=== PATIENT | female | born 1990 | race Caucasian/White ===

== ENCOUNTER 2016-09-25 10:58 | Emergency (ER) | payer OTHER, BC ==
[2016-09-25 11:03] VITALS: BP 133/74; PULSE 79; RESP 18; TEMP 98.4; O2SAT 99
--- NOTE | 2016-09-25 11:16 | EDPHY ---
H & P Time Seen by Provider: 09/25/16 11:08 HPI/ROS: This is a 26-year-old female presenting to the emergency department s/p puncturing left palm between index and middle finger 45 min [employer]. States she was slicing an avocado at work this morning, the knife slipped off the avocado pit and the knife went through the skin all the way through the other side " bleeding stopped a shantell a few minutes". Tetanus up-to-date February 2016. No other complaints REVIEW OF SYSTEMS: Constitutional: No fever chills Respiratory: No cough Cardiac: No chest pain Musculoskeletal: Left hand pain 08/06 Skin: Puncture wound to left palm Neurological: No headache or dizziness Past Medical/Surgical History: Tetanus up-to-date February 2016 Smoking Status: Never smoked Physical Exam: CONSTITUTIONAL: patient appeared well nourished, non-ill appearing and normally developed. No acute distress. Vital signs as documented. HEENT: Normocephalic atraumatic NECK: FROM without pain RESP: Non-labored resp effort NEURO: AAOx3 EXTREMITIES: 5 mm puncture wound between left index and middle finger at the webbing. Bleeding controlled FROM without pain or difficulty. Positive cms intact no tendon involvement SKIN: 5 mm puncture wound between left index and middle finger at the webbing PSYCH: Normal affect, calm, no distress Constitutional: Initial Vital Signs Temperature (C) 36.9 C 09/25/16 11:00 Heart Rate 79 09/25/16 11:00 Respiratory Rate 18 09/25/16 11:00 Blood Pressure 133/74 H 09/25/16 11:00 O2 Sat (%) 99 09/25/16 11:00 O2 Delivery Mode Room Air Allergies/Adverse Reactions: sulfamethoxazole [From Bactrim] Allergy (Mild, Verified 09/25/16 11:03) Rash trimethoprim [From Bactrim] Allergy (Mild, Verified 09/25/16 11:03) Rash Home Medications: Medication Instructions Recorded Control 09/25/16 Medical Decision Making - Diagnostics Imaging: History: Foreign body, pain, puncture. Findings: No evidence of radiopaque foreign bodies involving the left hand. No definite fracture of the fingers, metacarpals or carpal bones. Distal radius and ulna appear intact. Impression: 1. No definite fracture. 2. No definite radiopaque foreign bodies. Dictated By: Jason Wang ED Course/Re-evaluation: Discussed plan of care: X-ray left hand negative for any foreign bodies or acute findings. Wound irrigation, dressing placed no sutures needed Discharge home---> stable, discussed discharge instructions with the patient Differential Diagnosis: Other Differential diagnosis considered but not limited to foreign body, tendon laceration open fracture Departure - Departure Disposition: Home, Routine, Self-Care Clinical Impression: Puncture wound Condition: Good Instructions: Puncture Wound (ED) Additional Instructions: 1. X-ray did not show any foreign body in hand 2. Keep wound clean and dry 3. Monitor for any signs and symptoms of infection: Increased redness, discharge swelling hand, fever 4. Follow up with primary care physician as needed Referrals: [facility] MORRISON [Other] - As per Instructions Stand Alone Forms: Work Excuse
== END 2016-09-25 12:03 | disposition home or self-care (01) ==
DX: S61.432A Puncture wound without foreign body of left hand, initial encounter (principal); W26.0XXA Contact with knife, initial encounter; Y92.69 Other specified industrial and construction area as the place of occurrence of the external cause; Y99.0 Civilian activity done for income or pay; Y93.89 Activity, other specified